=== PATIENT | female | born 1950 | race Two or more races ===

== ENCOUNTER 2019-08-30 12:53 | Outpatient (CLI) | payer MEDICARE ==
--- NOTE | 2019-08-31 14:45 | Consultation ---
DATE OF CONSULTATION: 08/30/2019 CONSULTING PHYSICIAN: Franklin Fraga M.D. CHIEF COMPLAINT: Referral for screening colonoscopy, constipation. PAST MEDICAL HISTORY: 1. Hypertension. 2. Breast cancer. PAST SURGICAL HISTORY: Breast surgery. MEDICATIONS: Medication for high blood pressure, aspirin, and calcium. FAMILY HISTORY: Noncontributory. SOCIAL HISTORY: The patient denies any tobacco, alcohol, or drug abuse. ALLERGIES: No known allergies. REVIEW OF SYSTEMS: A 10-point review of systems was performed and pertinent positives in HPI. PHYSICAL EXAMINATION: GENERAL: This is a well-developed female, in no acute distress. HEENT: Normocephalic and atraumatic. Sclerae anicteric. NECK: Supple. No evidence of obvious lymphadenopathy. CARDIOVASCULAR: Regular rate and rhythm. Plus S1 and S2. No obvious murmur. LUNGS: Clear to auscultation bilaterally. ABDOMEN: Positive bowel sounds. Soft and nontender. No rebound. No guarding. No peritoneal sign. EXTREMITIES: No cyanosis, no clubbing, no edema. ASSESSMENT AND PLAN: 1. This is a 69-year-old female needing screening colonoscopy. We will schedule for hopefully this week or next week. The patient was given the instruction for colonoscopy. The risks and benefits of the procedure were explained to her. She agreed. 2. Also the patient has constipation. The patient was given prescription for Linzess 72 mcg p.o. daily and the patient to follow up in the office after colonoscopy. I want to thank, Dr. Jim Molina, for this kind referral. Franklin Fraga M.D. DR: MARIA INES JOB#: [id number] CC: Jim Molina M.D.; Fax#: [phone]
== END 2019-08-30 15:30 | disposition home or self-care (01) ==
LOC: PAN 12:53
DX: K59.00 Constipation, unspecified (principal); I10 Essential (primary) hypertension; Z85.3 Personal history of malignant neoplasm of breast; Z79.82 Long term (current) use of aspirin; Z79.899 Other long term (current) drug therapy
CPT/HCPCS: G0463

== ENCOUNTER 2019-09-01 09:09 | Day surgery (SDC) | payer MEDICARE ==
[2019-09-01] VITALS (8 sets, daily range): BP systolic 106–147; BP diastolic 65–79
[~2019-09-01] VITALS: Ht 157.5 cm; Wt 74.8 kg
[~2019-09-01 09:09] MED LIST: LR 1000ml 1,000 ML IV SCH
[2019-09-01] MEDS ORDERED: Propofol 200mg/20ml IV ONE (10:00)
[2019-09-01] MEDS ORDERED: LR 1000ml ONE (10:00)
[2019-09-01] MEDS ORDERED: fentaNYL 100 mcg/2 mL IV ONE (10:00)
[2019-09-01] MEDS ORDERED: LR 1000ml 1,000 ML IVLG SCH (10:08)
--- NOTE | 2019-09-01 10:08 | Anethesia Preoperative Eval ---
Anesthesia Pre-op PMH/ROS General Date of Evaluation: Sep 01, 2019 Time of Evaluation: 10:05 Anesthesiologist: Maddi ASA Score: ASA 2 Mallampati Score Class I : Soft palate, uvula, fauces, pillars visible Class II: Soft palate, uvula, fauces visible Class III: Soft palate, base of uvula visible Class IV: Only hard plate visible Mallampati Classification: Class II Surgeon: Flakito Diagnosis: Abdominal pain Surgical Procedure: Colonoscopy Anesthesia History: none Family History: no anesthesia problems Allergies: Coded Allergies: No Known Allergies (Unverified , 08/31/19) Medications: see eMAR Patient NPO?: Yes Past Medical History Cardiovascular: Reports: HTN; Denies: CAD, [place], valve dz, arrhythmia, other Pulmonary: Denies: asthma, COPD, JONATAN, other Gastrointestinal/Genitourinary: Reports: GERD - mild; Denies: CRI, ESRD, other Neurologic/Psychiatric: Denies: dementia, CVA, depression/anxiety, TIA, other Endocrine: Denies: DM, hypothyroidism, steroids, other HEENT: Denies: cataract (L), cataract (R), glaucoma, [place] (L), [place] (R), other Hematology/Immune: Denies: anemia, DVT, bleeding disorder, other Musculoskeletal/Integumentary: Denies: OA, RA, DJD, DDD, edema, other Other: other - overweight PMH Narrative: as above PSxH Narrative: R partial mastectomy Anesthesia Pre-op Phys. Exam Physician Exam Constitutional: NAD Neurologic: CN 2-12 intact Cardiovascular: RRR, no M/R/G Respiratory: CTA Gastrointestinal: S/NT/ND Airway Exam Mallampati Score: Class II MO: limited Neck: stiff ROM: limited Teeth: missing Dentures: no upper, no lower Anesthesia Pre-op A/P Studies Pre-op Studies: EKG - NSR Risk Assessment & Plan Assessment: ASA 2 Plan: MAC Status Change Before Surgery: Nuno Bustamante MD Sep 01, 2019 10:08
[2019-09-01] MEDS ORDERED: fentaNYL 100 mcg/2 mL IV PRN (10:15)
--- NOTE | 2019-09-01 10:17 | Pre-Procedure Note/Attestation ---
Pre-Procedure Note/Attestation Complete Prior to Procedure Planned Procedure: not applicable Procedure Narrative: colonoscopy Indications for Procedure Pre-Operative Diagnosis: screening Attestation I attest that I discussed the nature of the procedure; its benefits; risks and complications; and alternatives (and the risks and benefits of such alternatives ), prior to the procedure, with the patient (or the patient's legal auto service representative). I attest that, if there was a reasonable possibility of needing a blood transfusion, the patient (or the patient's legal auto service representative) was given the [facility] standardized written summary, pursuant to the [place] Blood Safety Act ([place] Health and Safety Code # 1645, as amended). I attest that I re-evaluated the patient just prior to the surgery and that there has been no change in the patient's H&P, except as documented below: Franklin Fraga MD Sep 01, 2019 10:17
--- NOTE | 2019-09-01 10:17 | Short Stay Surgery H&P ---
History of Present Illness History of Present Illness Chief Complaint see recent office consult note HPI Celestina Cano is a 69 year old female who was admitted on for Colon Screening Patient History Allergies: Coded Allergies: No Known Allergies (Unverified , 08/31/19) Physical Exam Vital Signs Last Vital Signs Date Time Temp Pulse Resp B/P (MAP) Pulse Ox O2 Delivery O2 Flow Rate FiO2 09/01/19 10:14 97.3 80 20 146/69 100 Room Air Plan Attestation Are the patient's medical conditions optimized for surgery? Franklin Fraga MD Sep 01, 2019 10:17
--- NOTE | 2019-09-01 10:50 | Endoscopy Procedure Note ---
Endoscopy Procedure Note General Indication for Procedure: screening Procedures Performed: colonoscopy Operative Findings/Diagnosis: hemorrhoid Specimen: none Pt Tolerated Procedure Well: Yes Estimated Blood Loss: none Anesthesia Anesthesiologist: charles Anesthesia: MAC Inserted Devices Implant(s) used?: No Quality Quality of Bowel Preparation: Good Did scope reach the cecum?: Yes Was there any complications?: No GI Core Measures 50 yrs or older w/o bx or poly: No 10yrs. F/U recommended: Yes If not recommended, why?: Above average risk 18 years or older w/prev. colo: No Franklin Fraga MD Sep 01, 2019 10:50
--- NOTE | 2019-09-01 10:52 | Immediate Post-Op Evaluation ---
Immediate Post-Op Evalulation Immediate Post-Op Evalulation Procedure: Colonoscopy Date of Evaluation: Sep 01, 2019 Time of Evaluation: 10:51 IV Fluids: 600 Blood Products: none Estimated Blood Loss: none Urinary Output: none Blood Pressure Systolic: 116 Blood Pressure Diastolic: 73 Pulse Rate: 68 Respiratory Rate: 20 O2 Sat by Pulse Oximetry: 99 Temperature (Fahrenheit): 97.5 Pain Score (1-10): 1 Nausea: No Vomiting: No Patient Status: awake, patent, none Hydration Status: adequate Nuno Linda MD Sep 01, 2019 10:52
--- NOTE | 2019-09-01 11:49 | 48 Hour Post Anesthesia Eval ---
Post Anesthesia Evaluation Procedure: Colonoscopy Date of Evaluation: Sep 01, 2019 Time of Evaluation: 11:48 Blood Pressure Systolic: 136 0: 68 Pulse Rate: 64 Respiratory Rate: 18 Temperature (Fahrenheit): 97.6 O2 Sat by Pulse Oximetry: 98 Airway: patent Nausea: No Vomiting: No Pain Intensity: 1 Hydration Status: adequate Cardiopulmonary Status: stable Mental Status/LOC: patient returned to baseline Follow-up Care/Observations: n/a Post-Anesthesia Complications: none Follow-up care needed: ready to discharge Nuno Linda MD Sep 01, 2019 11:49
--- NOTE | 2019-09-01 15:15 | Procedure Note ---
DATE OF PROCEDURE: 09/01/2019 SURGEON: Franklin Fraga M.D. PROCEDURE: Colonoscopy. ANESTHESIA: Per Dr. Linda. INSTRUMENT: Olympus adult flexible colonoscope. INDICATION: Screening colonoscopy. REASON FOR PROCEDURE: The procedure, risks, benefits, and possible consequences, including hemorrhage, aspiration, perforation and infection, and alternative treatments, were explained to the patient/legal guardian by Dr. Franklin Fraga and the patient/legal guardian understood and accepted these risks. DESCRIPTION OF PROCEDURE: After informed consent was obtained and the patient was adequately sedated, a rectal exam was performed, which was positive for internal hemorrhoids. Then, the scope was advanced from the rectum into the cecum documented by appendix orifice, ileocecal valve, and right upper quadrant palpation. Quality of prep was very good. The patient had normal colonoscopy examination up to the cecum. No obvious mass, polyp, or any other pathology was seen. Retroflexion of rectum showed evidence of medium-sized nonbleeding internal hemorrhoids. SUMMARY OF FINDINGS: Normal colonoscopy examination except for internal hemorrhoids. RECOMMENDATION: Repeat colonoscopy in 5 years. I want to thank Dr. Jim Molina for this kind referral. Franklin Fraga M.D. DR: MARIA INES JOB#: [id number] CC: Jim Molina M.D.; Fax#: [phone]
== END 2019-09-01 11:50 | disposition home or self-care (01) ==
LOC: GAS 09:09
DX: Z12.11 Encounter for screening for malignant neoplasm of colon (principal); K64.8 Other hemorrhoids; I10 Essential (primary) hypertension; K21.9 Gastro-esophageal reflux disease without esophagitis; E66.3 Overweight; Z68.30 Body mass index [BMI] 30.0-30.9, adult; Z90.11 Acquired absence of right breast and nipple
CPT/HCPCS: G0121; J2704; J3010; J7120; 94003; 94150